=== PATIENT | male | born 1980 | race Asian ===

== ENCOUNTER 2020-03-16 18:56 | Emergency (ER) | payer BC ==
[~2020-03-16] VITALS: Ht 165.1 cm; Wt 65.8 kg
[2020-03-16 18:58] VITALS: BP 113/72
[2020-03-16] MEDS ORDERED: MEDROLDOSEPACK PO ×2 (19:15→19:22)
[2020-03-16] MEDS ORDERED: HYDROXYZINE HCL25 M2 PO (19:19)
== END 2020-03-16 19:28 | disposition home or self-care (01) ==
LOC: ER 18:56
DX: L23.7 Allergic contact dermatitis due to plants, except food (principal)

== ENCOUNTER 2020-05-17 15:07 | Emergency (ER) | payer BC, OTHER ==
[~2020-05-17] VITALS: Ht 165.1 cm; Wt 66.7 kg
[~2020-05-17 15:07] MED LIST: HYDROXYZINE HCL25 M2 PO; MEDROLDOSEPACK PO
[2020-05-17 15:35] LABS: URINE BILIRUBIN NEGATIVE (Negative); URINE BLOOD NEGATIVE (Negative); URINE CLARITY CLEAR; URINE COLOR YELLOW; URINE GLUCOSE-RANDOM* NEGATIVE (Negative); URINE KETONES NEGATIVE (Negative); URINE LEUKOCYTES-REFLEX NEGATIVE (Negative); URINE NITRITE-REFLEX NEGATIVE (Negative); URINE PROTEIN (DIPSTICK) NEGATIVE (Negative); URINE SPECIFIC GRAVITY 1.025 (1.005-1.035); URINE UROBILINOGEN 0.2 E.U./dl (0.2-1.0)
[2020-05-17 15:37] LABS: ABSOLUTE NEUTROPHILS 5.9 thou/uL (1.4-8.2); BASOPHILS 0.6 % (0.0-2.0); EOSINOPHILS 0.9 % (0.0-3.0); HEMATOCRIT 45.2 % (42.0-52.0); HEMOGLOBIN 15.2 gm/dL (14.0-18.0); LYMPHOCYTES 18.8 % (24.0-44.0); MCHC 33.6 g/dL (28.0-37.0); MCV 86.4 fL (80.0-100.0); MONOCYTES 6.4 % (1.0-8.0); PLATELET COUNT 279 thou/uL (150-400); POLYS 73.3 % (36.0-66.0); RBC 5.24 mil/uL (4.50-6.00); WBC 8.1 thou/uL (4.0-11.0)
[2020-05-17 15:55] LABS: CALCIUM 9.3 mg/dL (8.5-10.1); CREATININE 0.9 mg/dL (0.7-1.3)
[2020-05-17 16:01] LABS: ALBUMIN 4.1 g/dL (3.4-5.0); TOTAL BILIRUBIN 0.8 mg/dL (0.2-1.0)
[2020-05-17] MEDS ORDERED: NOHOMEMEDICATIONS (17:39)
[2020-05-17] MEDS ORDERED: MEDROLDOSEPACK PO (20:15)
[2020-05-17] MEDS ORDERED: NORCO 5-325 TA1 EAC2 PO (20:15)
[2020-05-17 20:34] VITALS: BP 106/52
== END 2020-05-17 20:35 | disposition home or self-care (01) ==
LOC: ER 15:07
PROVIDERS: Physician Assistant
DX: K46.9 Unspecified abdominal hernia without obstruction or gangrene (principal); M54.9 Dorsalgia, unspecified